=== PATIENT | female | born 1980 | race Caucasian/White ===

== ENCOUNTER 2016-06-29 09:47 | Emergency (ER) | payer OTHER ==
[~2016-06-29] VITALS: Ht 172.7 cm; Wt 65.0 kg
[~2016-06-29 09:47] MED LIST: ALYACEN1 EACH; AMITRIPTYLINE H10 MG; BIRTH CONTROL; BUSPAR30 MG; DITROPAN XL5 MG PO; FERROUS SULFAT325 MG PO; FLEXERIL10 MG PO; IBUPROFEN800 MG PO; LAMICTAL100 MG PO; LAMICTAL200 MG PO; LAMOTRIGINE100 MG PO; LAMOTRIGINE200 MG; LUNESTA3 MG PO; MOTRIN800 MG PO; MULTI-DAY VITA1 EACH PO; NAPROSYN375 MG; NAPROSYN500 MG PO; NORCO 5/3251 TABLET PO; OXAYDO5 MG PO; PHENERGAN12.5 M1 PO; PRAZOSIN HCL1 MG; PREDNISONE10 M1 PO; PRENATAL VITAM1 EAC3 PO; RANITIDINE HCL150 MG; SUBOXONE 4 MG-1 EACH SL; TRAMADOL HCL50 MG PO; TUMS500 MG PO; TYLENOL WITH C1 EACH PO; VENTOLIN HFA18 GM IH; VICODIN,LORT1 TABLET PO; WELLBUTRIN XL300 MG PO
[2016-06-29 10:38] VITALS: BP 118/77
== END 2016-06-29 10:40 | disposition home or self-care (01) ==
LOC: EXP 09:47 → EME 09:47 → EXP 10:40
DX: L60.0 Ingrowing nail (principal)
CPT/HCPCS: 99281; 99283

== ENCOUNTER 2017-05-26 | Emergency (ER) | payer OTHER ==
[~2017-05-26] VITALS: Ht 175.3 cm; Wt 66.6 kg
[2017-05-26 01:04] LABS: BASOPHIL (%) 0.4 % (0-1); EOSINOPHIL (%) 3.1 % (0-5); EOSINOPHIL COUNT 0.3 K/uL (0-0.3); HEMATOCRIT 34.4 % (36.0-46.0); HEMOGLOBIN 11.7 G/DL (11.9-15.5); IMMATURE GRANULOCYTE (%) 0.2 % (0.0-0.7); LYMPHOCYTE (%) 28.6 % (15-42); LYMPHOCYTE COUNT 2.3 K/uL (1.0-2.8); MCV 85.4 FL (83-99); MONOCYTE (%) 7.8 % (3-12); MONOCYTE COUNT 0.6 K/uL (0-0.8); NEUTROPHIL (%) 59.9 % (45-76); NEUTROPHIL COUNT 4.8 K/uL (1.8-6.4); PLATELET COUNT 213 K/uL (156-360); RBC DIS.WIDTH-CV 12.7 % (11.8-14.6); RBC DIS.WIDTH-SD 39.7 % (39-53); RED BLOOD COUNT 4.03 M/uL (3.80-5.20); WHITE BLOOD COUNT 8.1 K/uL (4.1-10.2)
[2017-05-26 01:19] LABS: CHLORIDE 106 mEq/L (99-109); SODIUM 140 mEq/L (136-147)
[2017-05-26 01:20] LABS: GLUCOSE 120 mg/dL (70-99)
[2017-05-26 01:21] LABS: D-DIMER ELISA < 150.00 ng/mLDDU (<230)
[2017-05-26 01:24] LABS: CREATININE 0.7 mg/dL (0.6-1.3); GFR ESTIMATE (CALCULATED) > 59 mL/min/
[2017-05-26 01:25] LABS: UREA NITROGEN (BUN) 7 mg/dL (9-23)
[2017-05-26 01:53] LABS: TROP-I INTERPRETATION NEGATIVE; TROPONIN-I < 0.01 ng/mL (0.0-0.30)
[2017-05-26 03:37] LABS: TROP-I INTERPRETATION NEGATIVE; TROPONIN-I < 0.01 ng/mL (0.0-0.30)
[2017-05-26 03:52] VITALS: BP 100/60
== END 2017-05-26 04:02 | disposition home or self-care (01) ==
LOC: EME → EDBD → EME
PROVIDERS: Emergency Medicine
DX: R00.2 Palpitations (principal); R55 Syncope and collapse; E87.6 Hypokalemia; R00.1 Bradycardia, unspecified; F12.90 Cannabis use, unspecified, uncomplicated; J45.909 Unspecified asthma, uncomplicated; K21.9 Gastro-esophageal reflux disease without esophagitis; F41.9 Anxiety disorder, unspecified; F32.9 Major depressive disorder, single episode, unspecified; F31.9 Bipolar disorder, unspecified; F17.200 Nicotine dependence, unspecified, uncomplicated; Z85.41 Personal history of malignant neoplasm of cervix uteri
CPT/HCPCS: 71046; 80048; 80076; 83690; 84484; 85025; 85379; 93005; 99281; 99284; J7030

== ENCOUNTER 2017-08-29 04:01 | Emergency (ER) | payer OTHER ==
[~2017-08-29] VITALS: Ht 172.7 cm; Wt 69.3 kg
[2017-08-29] MEDS ORDERED: NORCO 5/3251 TABLET PO (05:29)
[2017-08-29 06:25] VITALS: BP 97/59
== END 2017-08-29 06:26 | disposition home or self-care (01) ==
LOC: EME 04:01
PROC: 2W3CX1Z Immobilization of Right Lower Arm using Splint (ICD-10-PCS; principal; 2017-08-29)
DX: S52.601A Unspecified fracture of lower end of right ulna, initial encounter for closed fracture (principal); W01.0XXA Fall on same level from slipping, tripping and stumbling without subsequent striking against object, initial encounter; Y92.009 Unspecified place in unspecified non-institutional (private) residence as the place of occurrence of the external cause; F17.200 Nicotine dependence, unspecified, uncomplicated
CPT/HCPCS: 73110; 99281; 99283